=== PATIENT | female | born 1980 | race Caucasian/White ===

== ENCOUNTER 2016-08-18 23:59 | Emergency (ER) | payer OTHER ==
--- NOTE | ~2016-08-18 | CT4 ---
[facility] A Service of [facility] & [facility] RADIOLOGY TEXT RESULTS PATIENT: RUCHI SANDY LOCATION: [facility] : 76 UNIT #: [id number] AGE: [address]: YAW MCMAHON APRN SEX: F ORDER DR: [id number] [facility] [address]. [place], [place] [address] [id number] E MR#: [id number] Acc #: [id number] NAME: RUCHI SANDY. : 1980 SEX: F STUDY DATE/TIME: 08/19/2016 0:24 UNIT: [facility] ROOM: STUDY DESCRIPTION: CT Abd and Pelv Wo Cont Attending Physician: Yaw Mcmahon Aprn Ordering Physician: Yaw Mcmahon Aprn Primary Care Physician: Elia Guzman M.D. MEDICAL IMAGING REPORT This report is preliminary unless electronic signature is present EXAM Abdomen and pelvis CT no contrast 08/19/2016 INDICATIONS 35-year-old female with flank pain on the right since 1500 hours low back pain. History of stones and gastric bypass. TECHNIQUE/COMPARISON Noncontrast abdomen and pelvis CT was performed and compared with 06/06/2016. This CT exam was performed with one or more of the following radiation dose reduction techniques: automatic exposure control, adjustment of mA and/or kV according to patient size, and iterative reconstruction. FINDINGS Exam markedly degraded by noncontrast technique. Included lung bases are clear. There are postop changes of gastric bypass. Aorta unremarkable. Spleen, adrenal glands and pancreas are unremarkable. Gallbladder surgically absent. Liver unremarkable. Kidneys demonstrate no radiopaque stone or hydronephrosis. Ureters not well visualized or assessed. CT pelvis Bladder unremarkable. No drainable fluid collection in the pelvis or adnexal mass. Bowel unremarkable. Appendix normal. Inguinal canals unremarkable. No suspicious bone lesion. IMPRESSION 1. No clearly acute process. No bowel obstruction, drainable fluid collection or focal area of inflammatory change. The appendix is normal. 2. No hydronephrosis or obstructing stone associated with either kidney. [facility] A Service of [facility] RADIOLOGY TEXT RESULTS PATIENT: RUCHI SANDY LOCATION: [facility] : 76 UNIT #: [id number] AGE: [address]: YAW MCMAHON APRN SEX: F ORDER DR: 3. Postop changes of cholecystectomy and gastric bypass. Dictated by... Ignacio Ogden M.D. THIS IS AN ELECTRONICALLY VERIFIED REPORT Ignacio Ogden M.D. at 08/19/2016 9:55 PM SARA/jeannine TD: 08/19/2016 14:23 JOB #: [id number] MEDICAL IMAGING REPORT Page 1 of 1 COPY
[2016-08-18 19:02] LABS: URINE SOURCE CLEAN CATCH
[2016-08-18 19:07] LABS: URINE APPEARANCE CLEAR; URINE BILIRUBIN NEG (NEG); URINE BLOOD NEG (NEG); URINE COLOR YELLOW; URINE GLUCOSE NEG (NEG); URINE KETONE TRACE (NEG); URINE LEUKOCYTE ESTERASE TRACE (NEG); URINE NITRATE NEG (NEG); URINE PROTEIN NEG (NEG); URINE SPECIFIC GRAVITY 1.039 (1.003-1.035); URINE UROBILINOGEN 0.2 MG/DL (NEG)
[2016-08-18 19:11] LABS: CULTURE INDICATED? YES; URINE BACTERIA AUWI NEG (NEGATIVE); URINE SQUAMOUS EPITHELIAL CELL OCC /[HPF]
[2016-08-18 20:30] LABS: BASOPHIL# 0.1 X10e3 (0-0.3); DIFF IND NO; EOSINOPHIL# 0.4 X10e3 (0-0.7); EOSINOPHIL% 4.4 % (0.0-7.0); HEMATOCRIT 35.8 % (35.0-45.0); HEMOGLOBIN 11.7 gm/dL (12.0-16.0); LYMPHOCYTE# 2.2 X10e3 (1.0-3.5); LYMPHOCYTE% 24.3 % (17.0-45.0); MEAN CELL VOLUME 78.6 FL (83-96); MEAN CORPUSCULAR HEMOGLOBIN 25.8 PG (28-34); MEAN CORPUSCULAR HGB CONC 32.8 g/dL (30-36); MEAN PLATELET VOLUME 10.1 FL (6.5-11.5); MONOCYTE# 0.6 X10e3 (0-1.0); MONOCYTE% 7.2 % (3.0-12.0); NEUTROPHIL# 5.6 X10e3 (1.5-7.1); NEUTROPHIL% 63.1 % (40-75); PLATELET COUNT 247 X10e3 (140-420); RED BLOOD COUNT 4.55 X10e (3.90-5.30); RED CELL DISTRIBUTION WIDTH 14.7 % (11.0-15.5); WHITE BLOOD COUNT 8.9 X10e3 (4.0-10.5)
[2016-08-18 20:54] LABS: ALBUMIN SERUM 4.3 g/dL (3.5-5.0); BILIRUBIN,TOTAL 0.7 mg/dL (0.2-2.0); CALCIUM SERUM 9.3 mg/dL (8.4-10.2); CREATININE SERUM 0.6 mg/dL (0.6-1.4); GLOM FILT RATE Estimated 116.4 mL/min (>60); POTASSIUM 4.5 mmol/L (3.5-5.1); PROTEIN TOTAL SERUM 7.4 g/dL (6.0-8.3)
[~2016-08-18 23:59] MED LIST: ATARAX PO; BENADRYL25 M1 PO; BENTYL20 MG PO; CELEXA20 MG PO; EPIPEN0.3 MG/0.1 IM; FAMOTIDINE PO; FLEXERIL10 MG PO; FLONASE16 GM; HYDROCODON-ACE1 EAC7 PO; K-DUR20 ME1 DOB; KEFLEX PO; MEDROL PO; MEDROL4 MG/DOSE- PO; MOTRIN600 MG PO; MULTI VITAMIN1 EACH PO; PERCOCET5/325 PO; PHENERGAN PO; PREDNISONE PO; PREDNISONE10 MG PO; PRILOSEC20 M1 PO; PROTONIX PO; TYLOX 5-500 MG1 EACH PO; VIBRAMYCIN100 M1 PO; VICODIN 5/1 TAB 5/50 PO; VICODIN 5/500 T1 TAB PO; VICODIN PO; ZITHROMAX PO; ZOFRAN ODT4 MG PO; ZOFRAN PO; ZOFRANODT PO; ZYRTEC-D TABLE1 EACH PO
[2016-11-30] MEDS ORDERED: NEXIUM PO (12:41)
== END 2016-08-19 02:07 | disposition home or self-care (01) ==
LOC: CFTX 23:59
PROVIDERS: Emergency Medicine
DX: R10.9 Unspecified abdominal pain (principal); R30.0 Dysuria; Z87.442 Personal history of urinary calculi; Z90.49 Acquired absence of other specified parts of digestive tract; Z91.040 Latex allergy status; Z98.84 Bariatric surgery status
CPT/HCPCS: 36415; 74176; 80053; 81003; 83690; 84703; 85025; 87086; 96361; 96374; 99284; J1885

== ENCOUNTER 2016-10-03 14:30 | Emergency (ER) | payer OTHER ==
--- NOTE | ~2016-10-03 | CT2 ---
[facility] A Service of [facility] RADIOLOGY TEXT RESULTS PATIENT: RUCHI SANDY LOCATION: [facility] : 76 UNIT #: [id number] AGE: [address]: Mario Willams MD SEX: F ORDER DR: [id number] [facility] [address] [place], [place] [address] [id number] E MR#: [id number] Acc #: [id number] NAME: RUCHI SANDY : 1980 SEX: F STUDY DATE/TIME: 10/03/2016 18:17 UNIT: [facility] ROOM: STUDY DESCRIPTION: CT Abd and Pelv W Cont Attending Physician: Mario Willams M.D. Ordering Physician: Mario Willams M.D. Primary Care Physician: Elia Guzman M.D. MEDICAL IMAGING REPORT This report is preliminary unless electronic signature is present EXAM CT abdomen and pelvis with contrast, 10/03/2016 HISTORY 35-year-old female with abdominal pain beginning today. COMPARISON CT abdomen and pelvis, 08/19/2016 TECHNIQUE Helical scan performed through the abdomen and pelvis following administration of IV contrast. Coronal and sagittal reformatted images. This CT exam was performed with one or more of the following radiation dose reduction techniques: automatic exposure control, adjustment of mA and/or kV according to patient size, and iterative reconstruction. FINDINGS Visualized lung bases are unremarkable. The liver, spleen, pancreas, both adrenal glands, and both kidneys are within normal limits. Postsurgical changes from gastric bypass. Cholecystectomy. Abdominal aorta normal in course and caliber without dissection. Small bowel is unremarkable without obstruction. Appendix is normal. Small borderline ventral abdominal wall hernia just above the umbilicus with a non-obstructed loop of small bowel. Moderate stool burden. No free fluid or free air. Urinary bladder, uterus, adnexa are unremarkable. No free pelvic fluid. No acute bony abnormality. IMPRESSION [facility] A Service of [facility] RADIOLOGY TEXT RESULTS PATIENT: RUCHI SANDY [id number] 76 UNIT #: [id number] AGE: [address]: Mario Willams MD SEX: F ORDER DR: 1. No acute abdominal or pelvic findings. Normal appendix. 2. Gastric bypass and cholecystectomy. 3. Borderline small ventral abdominal wall hernia containing an unobstructed loop of small bowel just above the umbilicus. 4. Moderate stool burden. Dictated by... Bud Landaverde M.D. THIS IS AN ELECTRONICALLY VERIFIED REPORT Bud Landaverde M.D. at 10/03/2016 10:55 PM SUE/amina TD: 10/03/2016 21:55 JOB #: [id number] MEDICAL IMAGING REPORT Page 1 of 1 COPY
[2016-10-03 16:12] LABS: URINE SOURCE CLEAN CATCH
[2016-10-03 16:19] LABS: URINE APPEARANCE CLOUDY; URINE BILIRUBIN NEG (NEG); URINE BLOOD TRACE (NEG); URINE COLOR DK YELLOW; URINE GLUCOSE NEG (NEG); URINE KETONE TRACE (NEG); URINE LEUKOCYTE ESTERASE 1+ (NEG); URINE NITRATE NEG (NEG); URINE PH 6.5 (5-8); URINE PROTEIN NEG (NEG)
[2016-10-03 16:22] LABS: CULTURE INDICATED? YES; URINE BACTERIA AUWI 2+ (NEGATIVE); UWBCS1 AUWI 25-50 (0-5)
[2016-10-03 16:28] LABS: U HYALINE CASTS AUWI 0-2 /[LPF]
[2016-10-03 16:29] LABS: URINE SQUAMOUS EPITHELIAL CELL OCCAS /[HPF]
[2016-10-03 17:07] LABS: BASOPHIL% 0.5 % (0-2.5); EOSINOPHIL# 0.1 X10e3 (0-0.7); EOSINOPHIL% 0.8 % (0.0-7.0); HEMATOCRIT 35.1 % (35.0-45.0); HEMOGLOBIN 11.2 gm/dL (12.0-16.0); LYMPHOCYTE# 1.1 X10e3 (1.0-3.5); MEAN CELL VOLUME 78.3 FL (83-96); MEAN CORPUSCULAR HGB CONC 31.9 g/dL (30-36); MEAN PLATELET VOLUME 10.4 FL (6.5-11.5); MONOCYTE# 0.4 X10e3 (0-1.0); MONOCYTE% 5.4 % (3.0-12.0); NEUTROPHIL# 6.3 X10e3 (1.5-7.1); NEUTROPHIL% 79.3 % (40-75); PLATELET COUNT 263 X10e3 (140-420); RED BLOOD COUNT 4.49 X10e (3.90-5.30); RED CELL DISTRIBUTION WIDTH 15.3 % (11.0-15.5)
[2016-10-03 17:12] LABS: DIFF IND NO
[2016-10-03 17:19] LABS: BILIRUBIN, DIRECT 0.1 mg/dL (0.0-0.2); BILIRUBIN,INDIRECT 0.1 mg/dL (0.0-0.9); BILIRUBIN,TOTAL 0.2 mg/dL (0.2-2.0); CALCIUM SERUM 8.9 mg/dL (8.4-10.2); CREATININE SERUM 0.6 mg/dL (0.6-1.4); GLOM FILT RATE Estimated 116.4 mL/min (>60); POTASSIUM 3.7 mmol/L (3.5-5.1); PROTEIN TOTAL SERUM 7.2 g/dL (6.0-8.3)
[2016-11-30] MEDS ORDERED: NEXIUM PO (12:41)
== END 2016-10-03 19:00 | disposition home or self-care (01) ==
LOC: CED 14:30
PROVIDERS: Emergency Medicine
DX: N39.0 Urinary tract infection, site not specified (principal); Z98.890 Other specified postprocedural states; Z91.040 Latex allergy status
CPT/HCPCS: 36415; 74177; 80048; 80076; 81003; 83690; 84703; 85025; 87086; 96361; 96365; 96375; 99284; J0696; J2405; Q9967

== ENCOUNTER → 2016-12-05 | Day surgery (SDC) | payer OTHER ==
[~2016-12-05] MED LIST changes: +NEXIUM PO
--- NOTE | ~2016-12-05 | OR ---
Unit #: [id number] #: [id number] Patient: RUCHI SANDY [id number] [address] [address] [id number] O MR#: [id number] NAME: RUCHI SANDY ROOM: Date of Procedure: 12/05/2016 Admission Date: 12/05/2016 Surgeon: Nitesh Farias M.D. : 1980 Attending Physician: Nitesh Farias M.D. Primary Care Physician: Elia Guzman M.D. OPERATIVE REPORT PREOPERATIVE DIAGNOSIS Epigastric pain. POSTOPERATIVE DIAGNOSIS Mild esophagitis. PROCEDURE PERFORMED Esophagogastroduodenoscopy with biopsy for Helicobacter pylori. BUSINESS DEVELOPMENT OFFICER None. ANESTHESIA IV sedation. COMPLICATIONS None. INDICATIONS FOR PROCEDURE The patient is a 36-year-old with gastric bypass, who presents with epigastric pain. DESCRIPTION OF PROCEDURE The patient was taken to the operating theater and placed in the left lateral decubitus position. IV sedation was initiated. EGD scope was passed under direct vision into the esophagus. Esophagus showed mild gastritis, but nonerosive. The GE junction was widely patent. The pouch appeared to be normal. I went down the Rashmi limb. This appeared to be without inflammation. A biopsy was taken for Helicobacter pylori as mentioned. She tolerated the procedure well and was sent to the recovery in good condition. PLAN We will treat with proton pump inhibitors. We will follow up on biopsy. Dictated by... Nitesh Farias M.D. Unit #: [id number] #: [id number] Patient: RUCHI SANDY JNO/modl TD: 12/06/2016 05:41 JOB #: [id number] OPERATIVE REPORT Page 1 of 1 X Nitesh Farias MD X PROCEDURE OPERATIVE NOTE
== END | disposition home or self-care (01) ==
LOC: COPS 10:02
DX: K20.9 Esophagitis, unspecified (principal); Z98.84 Bariatric surgery status
CPT/HCPCS: 84703; 87077